=== PATIENT | male | born 2005 | race Caucasian/White ===

== ENCOUNTER 2024-11-27 22:27 | Emergency (ER) | payer OTHER, SELFPAY ==
[2024-11-27 22:32] VITALS: BP 136/83
[2024-11-27 22:59] LABS: % Basophils 0.3 % (0-2); % Eosinophils 0.1 % (0-6); % Immature Granulocytes 0.4 % (0-0.5); % Lymphocytes 5.6 % (20.5-51.1); % Neutrophils 88.6 % (42.2-75.2); Absolute Basophils 0.1 10^3/uL (0-0.2); Absolute Immature Granulocytes 0.1 10^3/uL (0-0.05); Absolute Lymphocytes 1.1 10^3/uL (1.2-3.4); Absolute Neutrophils 16.9 10^3/uL (1.4-6.5); Hematocrit 47.4 % (39.0-52.0); Hemoglobin 16.8 g/dL (13.0-18.0); Mean Corp Hgb Conc. 35.4 g/dL (33.0-37.0); Mean Corpuscular Hgb 30.5 pg (27.0-31.0); Mean Platelet Volume 9.1 fL (7.4-10.4); Nucleated Red Blood Cells % 0 % (-); Platelet Count 257 10^3/uL (130-400); Red Blood Cell Count 5.51 10^6/uL (4.70-6.10)
[2024-11-27 23:20] LABS: ALT (SGPT) 29 U/L (0-50); AST (SGOT) 33 U/L (17-59); Albumin 5.8 g/dl (3.5-5.0); Alkaline Phosphatase 59 U/L (38-126); Blood Urea Nitrogen 27 mg/dl (9-20); Calcium 10.8 mg/dl (8.4-10.2); Carbon Dioxide 18 mmol/L (22-30); Chloride 109 mmol/L (98-107); Glucose 120 mg/dl (70-99); Lipase 67 U/L (23-300); Potassium 3.6 mmol/L (3.5-5.1); Sodium 143 mmol/L (135-145); Total Bilirubin 1.8 mg/dl (0.2-1.3); Total Protein 9.4 g/dl (6.3-8.2); eGFR > 60.00
[2024-11-27 23:55] VITALS: BP 128/80
== END 2024-11-27 23:59 ==
LOC: EMR 22:27
PROVIDERS: Student in an Organized Health Care Education/Training Program; FAMILY PHYSICIAN Pediatrics
DX: R11.2 Nausea with vomiting, unspecified (principal)
CPT/HCPCS: 80053; 83690; 85025

== ENCOUNTER 2025-01-28 17:17 | Emergency (ER) | payer OTHER, SELFPAY ==
[2025-01-28 17:21] VITALS: BP 146/83
[2025-01-28 17:51] LABS: Hematocrit 46.0 % (39.0-52.0); Hemoglobin 16.1 g/dL (13.0-18.0); Mean Corp Hgb Conc. 35.0 g/dL (33.0-37.0); Mean Corpuscular Volume 88.8 fL (80.0-94.0); Nucleated Red Blood Cells % 0 % (-); Platelet Count 258 10^3/uL (130-400); Red Cell Dist. Width 12.2 % (11.5-14.5)
[2025-01-28 18:07] LABS: ALT (SGPT) 21 U/L (0-50); AST (SGOT) 31 U/L (17-59); Albumin 5.3 g/dl (3.5-5.0); Alkaline Phosphatase 53 U/L (38-126); Blood Urea Nitrogen 19 mg/dl (9-20); Calcium 9.9 mg/dl (8.4-10.2); Carbon Dioxide 21 mmol/L (22-30); Chloride 107 mmol/L (98-107); Glucose 123 mg/dl (70-99); Lipase 79 U/L (23-300); Potassium 3.6 mmol/L (3.5-5.1); Sodium 139 mmol/L (135-145); Total Protein 8.2 g/dl (6.3-8.2); eGFR > 60.00
[2025-01-28 20:30] VITALS: BP 158/81
[2025-01-28 20:32] VITALS: BMI 29.2
[2025-01-28 20:33] VITALS: BP 158/81
[2025-01-28 22:19] LABS: Urine Character Clear (Clear)
[2025-01-28 22:42] LABS: Urine Red Blood Cell 0-2 /HPF (0-2); Urine Squamous Cell 0-2 /LPF (Few); Urine White Cell 0-2 /HPF (0-5)
--- NOTE | 2025-01-28 22:51 | ED.GENMED ---
History of Present Illness
General
Chief Complaint: Abdominal Symptoms
Source: patient and family
Time Seen by Provider: 01/28/25 20:57
History of Present Illness
History of Present Illness:
Note:
CHIEF COMPLAINT(S)
- Nausea and vomiting
HISTORY OF PRESENT ILLNESS
The patient is a 20-year-old male presenting with nausea and vomiting. Symptoms commenced at work, with an initial onset characterized by lightheadedness and progressively worsening nausea leading to vomiting. This episode occurred around 4 PM and
castellanos the fourth similar incident. Previous episodes involved prolonged vomiting lasting three to four hours, often after physical exertion or following the consumption of caffeine. In the current episode, the patient reports only vomiting twice.
There is a notable absence of pain, diarrhea, or bowel habit changes, with the patient feeling improved since presenting to the emergency room.
The patient has a history of similar episodes occurring over the past few months, with a pattern of symptom recurrence every few months. There is an association of symptoms with caffeine intake, alongside previous physical exertion. Today�s symptoms
arose without exertion. The patient describes no current abdominal pain and denies any recent illnesses in family or social contacts.
SOCIAL HISTORY
The patient reports regular use of cannabis by inhalation (vaping).
REVIEW OF SYSTEMS
- Gastrointestinal: Nausea and vomiting, no abdominal pain, and patient has not yet passed stool since the onset of symptoms.
- Neurological: Reports lightheadedness during the initial onset.
- Other systems reviewed and are otherwise non-contributory to the chief complaints.
PHYSICAL EXAM
General: Alert, no acute distress.
Skin: Warm, dry.
Head: Normocephalic, atraumatic.
Neck: Supple, trachea midline.
Eye, ears, nose, mouth, and throat: Oral mucosa moist.
Cardiovascular: Normal peripheral perfusion, no edema.
Respiratory: Respirations are non-labored.
Gastrointestinal: Abdomen soft, non-tender, non-distended.
Back: Normal range of motion, normal alignment, no costovertebral angle tenderness.
Musculoskeletal: Normal range of motion, normal strength.
Neurological: Alert and oriented to person, place, time, and situation, no focal neurological deficit observed.
Psychiatric: Cooperative, appropriate mood & affect.
PLAN
- Conduct an obstruction series abdominal X-ray to assess bowel patterns.
- Obtain blood work to check kidney function, along with urinalysis for further kidney assessment.
- Continue monitoring in the emergency department.
DIFFERENTIAL DIAGNOSIS
The Differential Diagnosis includes, in no particular order and is not limited to:
1. Cannabinoid hyperemesis syndrome
2. Food intolerance
3. Gastritis
4. Gastroenteritis
5. Peptic ulcer disease
6. Anne-Guevara tear
7. Esophageal stricture
8. Gallbladder disease
9. Dehydration or acute renal insufficiency
10. Electrolyte imbalance
Disposition:
SUMMARY OF ENCOUNTER
The patient, a 20-year-old male, presented to the emergency department with symptoms of nausea and vomiting that began at work. These episodes have been recurring over the past few months, often following caffeine intake and physical exertion, but
the current episode began without exertion. At the emergency department, laboratory tests indicated mild leukocytosis at 11.5 white count, normal liver function tests, lipase, potassium, sodium, and creatinine levels. Ketones were present in the
urine, suggesting mild volume depletion. The symptoms have resolved substantially during the ED stay.
ASSESSMENT
Intermittent vomiting, potentially related to cannabinoid hyperemesis syndrome or other gastrointestinal disturbances.
PLAN
Prescribe ondansetron (Zofran) as needed for nausea control at home. Recommend follow-up with primary care physician and possibly gastroenterology for further evaluation if symptoms persist. Consider trialing a course of proton pump inhibitor (PPI)
daily and possible endoscopy if gastrointestinal issues continue.
INDEPENDENT REVIEW OF LABS AND INTERPRETATION OF TESTS
My independent review of the complete blood count (CBC) indicates a very mild leukocytosis with a white count of 11.5. Normal liver function tests (LFTs), lipase, potassium, sodium, and creatinine levels were observed. Ketones present in urine
suggest mild volume depletion.
PATIENT EDUCATION AND COUNSELING
The patient was advised regarding the potential role of cannabis use in symptoms consistent with cannabinoid hyperemesis syndrome. Information was given about the possible need for further gastrointestinal workup if symptoms persist.
FOLLOW-UP INSTRUCTIONS
The patient is advised to follow up with their primary care physician and consult with a warp hanger if symptoms persist. Consider further evaluation with endoscopy if necessary.
MEDICATION RECONCILIATION
Ondansetron (Zofran) prescribed as needed for nausea control at home.
MEDICAL DECISION MAKING
- Number and Complexity of Problems Addressed: Chronic conditions affecting care include consideration of cannabinoid hyperemesis syndrome, food intolerance, gastritis, gastroenteritis, peptic ulcer disease, and other gastrointestinal issues.
- Data:
Category 1: Lab tests ordered and reviewed include CBC, LFTs, lipase, potassium, sodium, and creatinine.
- Risk:
Prescription medication was prescribed (ondansetron). Consideration of Admission/Observation: Escalation of care, including admission/observation, was considered given the complexity of the patients presenting complaint. However, the patient is
deemed safe for outpatient management with close follow-up due to work-up reassurance, symptom resolution, stable vitals, and the patient being agreeable to discharge.
DIAGNOSIS
- Nausea and vomiting, unspecified (R11.2)
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
- Mild leukocytosis (D72.829)
Phy Exam
Physical Exam
Physical Exam:
.
Course
Orders/Labs/Results
Orders:
Orders
01/28/25 17:29
Complete Blood Count/With Diff Urgent
Comprehensive Metabolic Panel Urgent
Lipase Urgent
01/28/25 21:40
Obstruct Series W/PA Chest [CR Obstruct Series W/pa Chest] Urgent
Comment:
Reason For Exam: vomiting
01/28/25 22:12
Urinalysis Reflex To Culture Urgent
Date Specimen was Collected: 01/28/25
Time Specimen was Collected: 22:09
Urine Microscopic Reflex Cult Urgent
Abnormal Lab Results
01/28/25 01/28/25
17:29 22:12
WBC 11.5 H 10^3/uL
(4.8-10.8)
MCH 31.1 H pg
(27.0-31.0)
Absolute Neuts (auto) 8.8 H 10^3/uL
(1.4-6.5)
Neutrophils % 76.6 H %
(42.2-75.2)
Lymphocytes % 17.7 L %
(20.5-51.1)
Carbon Dioxide 21 L mmol/L
(22-30)
Glucose 123 H mg/dl
(70-99)
Total Bilirubin 1.4 H mg/dl
(0.2-1.3)
Albumin 5.3 H g/dl
(3.5-5.0)
Urine Ketones 3+ A
(Negative)
Urine Albumin (Reflex) 1+ A
(Neg - Trace)
01/28/25 17:29
01/28/25 17:29
Vital Signs
Initial and Last Documented VS:
Initial Vital Signs
Temp Pulse Resp BP Pulse Ox
97.7 F 91 18 146/83 100
01/28/25 17:21 01/28/25 17:21 01/28/25 17:21 01/28/25 17:21 01/28/25 17:21
Last Documented Vital Signs
Temp Pulse Resp BP Pulse Ox
97.7 F 89 18 158/81 99
01/28/25 17:21 01/28/25 20:33 01/28/25 20:33 01/28/25 20:33 01/28/25 22:52
*Pulse Oximetry
SaO2: 99
Oxygen Mode of Delivery: Room air
Patient hypoxic: no
*Critical Care Note
Total Time (30-74mins, 75-104mins- exclusive of procedures): Not Applicable
ED Attending Note
-
Portions of this chart may have been created with voice recognition software.� Occasional wrong word or��sound alike� substitutions may have occurred due to the inherent limitations of voice recognition software.
Discharge Plan
Departure
Patient Disposition: Home (Routine Discharge)
Date of Disposition: 01/28/25
Time of Disposition: 22:51
Patient with high blood pressure during this ER visit?: No
Discharge Problem:
Nausea & vomiting
Instructions: Nausea and Vomiting, Adult (DC), BLOOD PRESSURE
Prescriptions:
New
ondansetron 4 mg tablet,disintegrating
4 mg PO TIDPRN PRN (Reason: nausea/vomiting) Qty: 20 0RF
pantoprazole [Protonix] 40 mg tablet,delayed release (DR/EC)
40 mg PO DAILY Qty: 30 0RF
Rx Instructions:
Please take 30 minutes prior to eating or drinking anything in the morning.
Referrals:
Efrain Moore, DO [Family Provider, Pediatrics]
Activity Restrictions/Additional Instructions:
Please see your doctor in the next 3 to 5 days for follow-up and reevaluation. If your symptoms persist, outpatient follow-up with gastroenterology may be necessary. Return immediately for intractable vomiting, abdominal pain, fevers, weakness of
any kind or any other concerns. Please consider ceasing use of marijuana.
Interventions
Interventions:
*Risk Screen - Suicide Last Done: 01/28/25 17:21
*General Assessment Last Done: 01/28/25 17:21
LO-Drizwa-Wvepplrawv Assessment Last Done: 01/28/25 20:34
Discharge Date and Time
Print Language: YORUBA
[2025-01-28 23:05] VITALS: BP 156/76
== END 2025-01-28 23:07 | disposition home or self-care (01) ==
LOC: EMR 17:17
PROVIDERS: Emergency Medicine; EMERGENCY PHYSICIAN Emergency Medicine; FAMILY PHYSICIAN Pediatrics
DX: R11.2 Nausea with vomiting, unspecified (principal); R42 Dizziness and giddiness; D72.829 Elevated white blood cell count, unspecified; F12.180 Cannabis abuse with cannabis-induced anxiety disorder
CPT/HCPCS: 99283; 74022; 80053; 81003; 81015; 83690; 85025